=== PATIENT | female | born 1955 | race Hispanic/Latino ===

== ENCOUNTER 2025-04-01 08:07 | Emergency (ER) | payer OTHER, MEDICARE ==
[~2025-04-01] VITALS: Ht 152.4 cm; Wt 49.9 kg
--- NOTE | 2025-04-01 08:41 | ERN ---
General Chief Complaint: Hip Pain/Injury Stated Complaint: RIGHT HIP PAIN Time Seen by MD: 08:08 Source: patient History of Present Illness Initial Comments Patient is a 69-year-old female coming in complaining of right hip pain. Per patient she fell down eight days ago was evaluated by PCP in his pending an imaging study. She states that she started having more discomfort decided to come in for further evaluation. No Allergies: Coded Allergies: No Known Drug Allergies (Unverified Allergy, Intermediate, 04/01/25) Home Meds Active Scripts Naproxen (Naproxen) 375 Mg Tablet.dr, 375 MG PO BID for 7 Days, #14 TAB Prov:DOROTHEA MISTRY MD 04/01/25 Methocarbamol (Robaxin) 750 Mg Tab, 1 TAB PO BID for 5 Days, #10 TAB 0 Refills Prov:DOROTHEA MISTRY MD 04/01/25 Past Medical History Past Medical History: Asthma, Diabetes-Type II, High Cholesterol Past Surgical History: None ROS Dictation CONSTITUTIONAL: No chills, no fever, no weakness, no diaphoresis, no malaise. HEAD/FACE: No signs of trauma. EENT: No eye pain, no blurred vision, no tearing, no double vision, no ear pain, no ear discharge, no nose pain, no nasal congestion, no throat pain, no throat swelling, no mouth pain. RESPIRATORY: No cough, no orthopnea, no SOB, no stridor, no wheezing. CARDIOVASCULAR: No chest pain, no edema, no palpitations, no syncope. GASTROINTESTINAL/ABDOMINAL: No abdominal pain, no constipation, no diarrhea, no nausea, no vomiting. GENITOURINARY: No abnormal discharge, no dysuria, no frequent urination, no hematuria. No complaints of pain in the genitals. MUSCULOSKELETAL: No back pain, no gout, joint pain, no joint swelling, muscle pain, no muscle stiffness, no neck pain. INTEGUMENTARY: No change in color, no change in hair/nails, no dryness, no lesion, no lumps, no rash. NEUROLOGICAL/PSYCH: No anxiety, not depressed, no emotional problem, no headache, no numbness, no pre-existing deficit, no history of seizures, no tremors, no weakness. HEMATOLOGIC/LYMPHATIC: Not anemic, no history of blood clots, no apparent bleeding, no bruising, glands not swollen. All Systems Negative, Except as Noted. Physical Exam Physical Exam Dictation VITAL SIGNS: Reviewed. GENERAL APPEARANCE: Alert, oriented x3, no acute distress, obese. HEAD AND FACE: Non-traumatic. EYES: PERRL, pink conjunctivas, eyelid no trauma, anterior chamber clear. EARS: Pinnas intact and no signs of trauma or erythema. Ear canals clear and no discharge. TMs no erythema. NOSE: No discharge, no bleeding. OROPHARYNX: Mouth normal, teeth no caries, tongue pink. Pharynx clear, no erythema. Tonsils no exudates, no abscesses noted. Mucous membrane moist. NECK: Supple, non-tender, no thyromegaly, no masses, no JVD, no bruits. BREAST: Deferred. CHEST: No tenderness, no crepitus, no paradoxical movement, no retractions. LUNGS: Clear, well-ventilated, symmetric, no rales, no wheezing, no rhonchi, no stridor, good breath sounds bilaterally. HEART: Regular rate, regular rhythm, no murmur, no gallops. VASCULAR: No peripheral edema. ABDOMEN: Soft, positive bowel sounds, nondistended, no guarding, nontender, no rebound, no masses no hepatomegaly, no splenomegaly, no Atkins's sign, no hernias. RECTAL: Deferred. GENITAL: Deferred. NEUROLOGICAL: Normal speech, gross motor function intact, gross sensory function intact. MUSCULOSKELETAL: Neck nontender, full range of motion, back nontender, full range of motion. EXTREMITIES: Nontender, full range of motion. Right hip pain piriformis muscle tenderness SKIN: Color pink, dry, no turgor, no rash, no lacerations, no abrasions, no contusions. LYMPHATICS: Deferred. Results Laboratory and Microbiology Labs Reviewed?: Yes EKG/XRAY/US/CT/MRI X-RAY Comment Right hip x-ray-NAD MDM MDM: Differential diagnosis: Right hip strain, piriformis muscle tenderness, piriformis, right-sided sciatica Rationale: Tests considered and ordered secondary to shared decision making include: Previous outside records reviewed: Old ER visits. Risk of complication and/or morbidity or mortality of patient management: None Medications-Per medication reconciliation Need for hospitalization: Patient does not meet criteria for hospitalization. Patient is a 69-year-old female coming in complaining of right hip and posterior leg pain. On physical exam piriformis muscle tenderness on palpation. X-ray did not disclose acute findings. Patient received antispasmodics anti- inflammatories and was instructed to continue with scheduled visit with PCP already. We will try conservative treatment initially with the medication. Patient states she feels better and will follow up with her PCP as indicated. ED Course Orders Procedure Category Date Status Time Hip Unilat 2-3vw Right RAD 04/01/25 Taken 08:30 Orphenadrine Citrate PHA 04/01/25 Complete (Norflex) 08:30 Ketorolac PHA 04/01/25 Complete Tromethamine 15mg/Ml 08:30 Current Medications Medications (Trade) Dose Ordered Sig/Michelle Route PRN Reason Start Time Stop Time Status Last Admin Dose Admin Ketorolac Tromethamine (toRADol) 15 mg ONCE ONCE IM 04/01/25 08:30 04/01/25 08:39 DC 04/01/25 09:00 Orphenadrine Citrate (Norflex) 60 mg ONCE ONCE IM 04/01/25 08:30 04/01/25 08:39 DC 04/01/25 09:00 Vital Signs Date Time Temp Pulse Resp B/P (MAP) Pulse Ox O2 Delivery O2 Flow Rate FiO2 04/01/25 08:08 98 18 164/76 99 Room Air DX & DISP Disposition: Discharge Departure Impression: Primary Impression: Right sided sciatica Condition: Stable Scripts Naproxen (Naproxen) 375 Mg Tablet. 375 MG PO BID for 7 Days, #14 TAB Prov: DOROTHEA MISTRY MD 04/01/25 Methocarbamol (Robaxin) 750 Mg Tab 1 TAB PO BID for 5 Days, #10 TAB 0 Refills Prov: DOROTHEA MISTRY MD 04/01/25 Additional Instructions: FOLLOW-UP WITH PRIMARY CARE PROVIDER IN 1 TO 2 DAYS. TAKE MEDICATIONS DIRECTED HERE IN THE EMERGENCY ROOM. OKAY TO CONTINUE HOME MEDICATIONS UNLESS O THERWISE DISCUSSED DURING YOUR VISIT IN THE EMERGENCY ROOM TODAY. RETURN TO YOUR NEAREST EMERGENCY ROOM IF SYMPTOMS WORSEN OR IF THERE IS NO IMPROVEMENT. CALL 911 IF YOU NEED IMMEDIATE ASSISTANCE. TAKE TYLENOL [id number] NEEDED AND IF NO CONTRAINDICATIONS ARE PRESENT. INCREASE ORAL HYDRATION. A WOUND CULTURE OR URINE CULTURE WAS ORDERED HERE IN THE EMERGENCY ROOM DEPARTMENT PLEASE FOLLOW-UP WITH PRIMARY CARE PROVIDER AND ADVISE THEM TO GET REPORTS FROM OUR FACILITY. IF YOU HAD ANY IVETTE WRAP/SPLINTS THAT WERE APPLIED HERE, PLEASE DO NOT REMOVE THEM UNTIL YOU SEE YOUR PRIMARY CARE OR SPECIALTY. Referrals: Referrals: SELF,REFERRAL (PCP) IVANNA POLANCO MD Time of Disposition: 09:09 DOROTHEA MISTRY MD Apr 01, 2025 08:41
[2025-04-01] MEDS: ORPHENADRINE 60MG/2ML IM ONE (09:00)
[2025-04-01] MEDS ORDERED: METH-662 PO (09:10)
[2025-04-01] MEDS ORDERED: NAPR-1505 PO (09:10)
--- NOTE | 2025-04-01 09:55 | HMCIMG ---
EXAM: CR right Hip,2 View. CLINICAL HISTORY: Complaints of hip pain. COMPARISON: None provided. FINDINGS: BONES: No acute fracture or aggressive appearing osseous lesion. JOINTS: No dislocation. 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 Linear calcified focus present overlying the greater trochanter of right femur suggestive of calcific tendinopathy of right gluteus medius. Degenerative enthesophytes along greater trochanter of bilateral femur. SOFT TISSUES: The soft tissues are unremarkable. IMPRESSION: No acute osseous abnormality. 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 Calcific tendinopathy of right gluteus medius. /[place]
[2025-04-01 10:33] VITALS: BP 157/76; PULSE 86; RESP 18; TEMP 98.1; O2SAT 96
== END 2025-04-01 10:45 | disposition home or self-care (01) ==
LOC: EDH 08:07
DX: M54.31 Sciatica, right side (principal); E11.9 Type 2 diabetes mellitus without complications; E78.00 Pure hypercholesterolemia, unspecified; J45.909 Unspecified asthma, uncomplicated
CPT/HCPCS: 99284; 73502; 96372 ×2; J1885; J2360